=== PATIENT | female | born 1950 | race Caucasian/White ===

== ENCOUNTER → 2016-03-22 | Outpatient (CLI) | payer OTHER ==
[~2016-03-22] MED LIST: CALC500C70 PO; CHOL1CAP26 PO; CPROT OTR; LISI-725 PO; LISI10TA PO; LORA-741 PO; ZNTT/150 PO
--- NOTE | 2016-03-23 14:08 | MAMMOGRAPHY REPORT ---
BILATERAL DIGITAL SCREENING MAMMOGRAM TOMOSYNTHESIS WITH CAD: 03/22/2016 CLINICAL HISTORY: Routine screening examination. Personal history of breast cancer. TECHNIQUE: Breast tomosynthesis in addition to standard 2D mammography was performed. Current study was also evaluated with a Computer Aided Detection (CAD) system. COMPARISON: Comparison is made to exams dated: 09/17/2015 mammogram, 03/18/2015 mammogram, 03/10/2015 mammogram, 02/26/2014 mammogram, 02/25/2013 mammogram, and 02/23/2012 mammogram - [facility]. BREAST COMPOSITION: The tissue of both breasts is extremely dense, which lowers the sensitivity of mammography. FINDINGS: There is asymmetry of the size of the breasts, right greater than left, that is stable on all available prior mammograms dating back to at least 2007, most likely related to previous surgery . There is a stable asymmetry in the far superior right breast on the MLO view. Benign rim calcifi cations, round and punctate microcalcifications are diffusely scattered in the breasts. No suspicio us mass, architectural distortion or cluster of suspicious microcalcifications is seen. IMPRESSION: ACR BI-RADS CATEGORY 1: NEGATIVE There is no mammographic evidence of malignancy. A 1 year screening mammogram is recommended. The p atient will receive written notification of the results. Approximately 10% of breast cancers are not detected with mammography. A negative mammographic repor t should not delay biopsy if a clinically suggestive mass is present. Olinda De Anda M.D. ay/:03/22/2016 16:49:14 [place]: Aissatou VAUGHAN(Javy)(Guerda), [facility] letter sent: Normal 1/2 BI-RADS Code: ACR BI-RADS Category 1: Negative
== END | disposition home or self-care (01) ==
LOC: C.MAMM 14:28
PROVIDERS: ATTEND Nurse Practitioner Family
DX: Z12.31 Encounter for screening mammogram for malignant neoplasm of breast (principal); Z85.3 Personal history of malignant neoplasm of breast; Z08 Encounter for follow-up examination after completed treatment for malignant neoplasm

== ENCOUNTER 2016-04-10 08:25 | Emergency (ER) | payer OTHER ==
[~2016-04-10] VITALS: Ht 160 cm; Wt 51.2 kg
[~2016-04-10 08:25] MED LIST changes: -CPROT OTR; -LISI-725 PO; -LORA-741 PO
[2016-04-10 08:34] VITALS: TEMP 36.6; Ht 160 cm; Wt 51.2 kg
[2016-04-10] MEDS ORDERED: CIPRO 0.2%/HYDROCORTISONE 1% OTIC SUSP 10 ML BTL OT STA (08:51)
[2016-04-10] MEDS ORDERED: LISI-725 PO (09:04)
--- NOTE | 2016-04-10 09:25 | EMERGENCY ROOM VISIT NOTE ---
ED Visit Note First contact with patient: 08:38 CHIEF COMPLAINT: Right ear pain HISTORY OF PRESENT ILLNESS: This 66-year-old female presents the ER with chief complaint of pain and outer right ear swelling for the past 2 weeks. The patient states that she went to her PCP on for the symptoms. She was placed on Z-Niranjan and given Gino-poly HC ear drops to use in the ear. The patient states that the ear drops have made the ear worse. She states it is more swollen and burning. The patient denies any visible drainage from the ear. REVIEW OF SYSTEMS: 6 system review was performed and was negative unless stated otherwise in history of present illness. PMH: The patient is healthy; hypertension, breast cancer, GERD, ovarian cyst removal SOCIAL HISTORY: Patient denies any tobacco or alcohol use. The patient is employed. PHYSICAL EXAM: Vital Signs: Were reviewed Reviewed Nurse's notes. GEN.: 66-year -old white female appears in no acute distress. MENTAL Status: Alert and oriented 3. EARS: Left tragus and auricle nontender. Canal clear. TMs with good light reflex. Right tragus and auricle tender to palpation. Canal with edema and drainage noted. Unable to visualize the TM due to the drainage. NECK : Supple, no lymphadenopathy noted. EMERGENCY COURSE: The patient was evaluated. The patient was offered pain medication but declined. Cipro otic 2 drops are placed into the right ear. The patient was given the remainder of the bottle for home treatment. The patient was discharged home in stable condition. DIAGNOSIS: Acute right otitis externa DISCHARGE INSTRUCTIONS & TREATMENT: Discontinue your current ear drops there is a possibility that you're having allergic reaction to the ear drops since they have a sulfate in them. Use Cipro otic eardrops 2 drops into the right ear twice daily for 7 days. If symptoms are not improving in 2 days recommend follow-up with Dr. Shultz Problem List Surgical Problems: (1) History of breast biopsy Status: Resolved Current/Historical Medications Scheduled Calcium/Vitamin D (Os-Jurgen 500 Plus D), 1 TAB PO QAM Cholecalciferol (D3 Ultra Strength), 5,000 INTUNIT PO QAM Ranitidine (Zantac), 150 MG PO BID Miscellaneous Medications Lisinopril (Zestril), 20 MG PO Allergies Coded Allergies: Penicillins (Verified Allergy, Unknown, , 04/10/16) Sulfa Antibiotics (Verified Allergy, Unknown, RASH, 04/10/16) Vital Signs Date Time Temp Pulse Resp B/P Pulse Ox O2 Delivery O2 Flow Rate FiO2 04/10/16 08:34 36.6 90 18 162/90 98 Room Air Departure Information Referrals Godfrey Soto III, CRNP (PCP) Patient Instructions My [facility]
[2016-04-10 09:40] VITALS: BP 139/93; PULSE 81; O2SAT 98
[2016-04-11] MEDS ORDERED: CPROT OTR (08:12)
[2016-04-11] MEDS ORDERED: LORA-741 PO (08:12)
== END 2016-04-10 09:41 | disposition home or self-care (01) ==
LOC: C.EDB 08:26
DX: H60.501 Unspecified acute noninfective otitis externa, right ear (principal); I10 Essential (primary) hypertension; Z85.3 Personal history of malignant neoplasm of breast; Z79.899 Other long term (current) drug therapy

== ENCOUNTER → 2016-04-15 | Day surgery (SDC) | payer OTHER ==
[2016-04-11 08:13] VITALS: BMI 18.0
[~2016-04-15] VITALS: Ht 160 cm; Wt 47.7 kg
[~2016-04-15] MED LIST changes: +CPROT OTR; +LIDOCAINE HCL 2% 2 ML VIAL (20MG/ML) ONE; +LISI-725 PO; -LISI10TA PO; +LORA-741 PO; +PROPOFOL IV EMULSION 10 MG/ML 20 ML VIAL IV ONE; +SODIUM CHLORIDE 0.9% 500ML 500 ML IV ONE
[2016-04-15 09:36] VITALS: Ht 160 cm; Wt 47.7 kg
[2016-04-15 09:50] VITALS: TEMP 36.7
--- NOTE | 2016-04-15 11:18 | Endo History and Physical ---
History & Physical Date of Service: Apr 15, 2016. Chief Complaint: SCREENING 10 YEAR FOLLOW UP Referring Physician: MITCH ARAGON History of Present Illness 66 yo CF who presents for screening colonoscopy. Past Medical History Reflux, Cancer, Hypertension Past Surgical History Hx Cardiac Surgery: No Hx Internal Defibrillator: No Hx Pacemaker: No Hx Abdominal Surgery: Yes (OVARIAN CYST REMOVED) Hx of Implantable Prosthesis: No Hx Post-Op Nausea and Vomiting: No Hx Cancer Surgery: Yes (LEFT BREAST LUMPECTOMY) Hx Thoracic Surgery: No Hx Orthopedic: No Hx Urinary Tract Surgery: No Family History None Social History Smoking Status: Never Smoker Hx Substance Use: No Hx Alcohol Use: No Allergies Coded Allergies: Penicillins (Verified Allergy, Unknown, infant, 04/15/16) Sulfa Antibiotics (Verified Allergy, Unknown, RASH, 04/15/16) Current Medications Reported Home Medications Medications Dose Route/Sig Max Daily Dose Days Date Category Ativan (Lorazepam) 0.5 Mg Tab 0.5 Mg PO BID PRN 04/11/16 Reported Cipro Hc Otic (Ciprofloxacin-Hydrocortisone) 1 Delia Delia 3 Drops OTR BID 04/11/16 Reported Zestril (Lisinopril) 20 Mg Tab 20 Mg PO QAM 04/10/16 Reported Os-Jurgen 500 Plus D (Calcium/Vitamin D) Tab 1 Tab PO QAM 08/27/15 Reported Zantac (Ranitidine HCl) 150 Mg Tab 150 Mg PO BID 08/27/15 Reported D3 Ultra Strength (Cholecalciferol) 5,000 Unit Cap 5,000 Intunit PO QAM 08/27/15 Reported Vital Signs Weight (Kilograms): 47.73 Height (Feet): 5 Height (Inches): 3 Date Time Temp Pulse Resp B/P Pulse Ox O2 Delivery O2 Flow Rate FiO2 04/15/16 09:50 36.7 75 18 168/97 100 Room Air Physical Exam General Appearance: WD/WN, no apparent distress Respiratory/Chest: Auscultation: breath sounds normal Cardiovascular: Heart Auscultation: RRR Abdomen: Bowel Sounds: normal Inspection & Palpation: soft, non-distended, no tenderness, guarding & rebound Assessment and Plan Assessment: 66 yo CF who presents for screening colonoscopy. Plan: Proceed with colonoscopy.
--- NOTE | 2016-04-15 11:46 | GI REPORT ---
Procedure Date: 04/15/2016 11:12 AM Procedure: Colonoscopy Indications: Screening for colorectal malignant neoplasm Medicines: Monitored Anesthesia Care Complications: No immediate complications. Estimated Blood Loss: Estimated blood loss: none. Procedure: Pre-Anesthesia Assessment: - Prior to the procedure, a History and Physical was performed, and patient medications and allergies were reviewed. The patient's tolerance of previous anesthesia was also reviewed. The risks and benefits of the procedure and the sedation options and risks were discussed with the patient. All questions were answered, and informed consent was obtained. Prior Anticoagulants: The patient has taken no previous anticoagulant or antiplatelet agents. ASA Grade Assessment: II - A patient with mild systemic disease. After reviewing the risks and benefits, the patient was deemed in satisfactory condition to undergo the procedure. After I obtained informed consent, the scope was passed under direct vision. Throughout the procedure, the patient's blood pressure, pulse, and oxygen saturations were monitored continuously. The Scope was introduced through the anus and advanced to the terminal ileum. The colonoscopy was performed without difficulty. The patient tolerated the procedure well. The quality of the bowel preparation was good. The terminal ileum, ileocecal valve, appendiceal orifice, and rectum were photographed. Findings: A 15 mm polyp was found in the sigmoid colon. The polyp was pedunculated. The polyp was removed with a hot snare. Resection and retrieval were complete. Non-bleeding external internal hemorrhoids were found during retroflexion and during perianal exam. The hemorrhoids were small. Impression: - One 15 mm polyp in the sigmoid colon, removed with a hot snare. Resected and retrieved. - Non-bleeding external internal hemorrhoids. Recommendation: - Resume previous diet. - Continue present medications. - Repeat colonoscopy for surveillance based on pathology results. - Return to primary care physician as previously scheduled. Linus Alan DO 04/15/2016 11:45:34 AM This report has been signed electronically. Note Initiated On: 04/15/2016 11:12 AM I attest to the content of the Intraoperative Record and orders documented therein, exceptions below
--- NOTE | 2016-04-15 11:47 | Discharge Instructions ---
Endoscopy Patient Instructions Date / Procedure(s) Performed Apr 15, 2016. Colonoscopy Allergy Information Coded Allergies: Penicillins (Verified Allergy, Unknown, infant, 04/15/16) Sulfa Antibiotics (Verified Allergy, Unknown, RASH, 04/15/16) Discharge Date / Findings Apr 15, 2016. Colon polyp Internal hemorrhoids Medication Instructions Stopped Medication(s): VITAMINS STOPPED YESTERDAY Ok to resume all medications today as prescribed Reported Home Medications Medications Dose Route/Sig Max Daily Dose Days Date Category Ativan (Lorazepam) 0.5 Mg Tab 0.5 Mg PO BID PRN 04/11/16 Reported Cipro Hc Otic (Ciprofloxacin-Hydrocortisone) 1 Delia Delia 3 Drops OTR BID 04/11/16 Reported Zestril (Lisinopril) 20 Mg Tab 20 Mg PO QAM 04/10/16 Reported Os-Jurgen 500 Plus D (Calcium/Vitamin D) Tab 1 Tab PO QAM 08/27/15 Reported Zantac (Ranitidine HCl) 150 Mg Tab 150 Mg PO BID 08/27/15 Reported D3 Ultra Strength (Cholecalciferol) 5,000 Unit Cap 5,000 Intunit PO QAM 08/27/15 Reported Provider Instructions Activity Restrictions - No exercising or heavy lifting for 24 hours. - Do not drink alcohol the day of the procedure. - Do not drive a car or operate machinery until the day after the procedure. - Do not make any important decisions or sign important papers in 24 hours after the procedure. Following Day: - Return to full activity which may include returning to work/school. Diet Start your diet with liquids and light foods (jello, soup, juice, toast). Then eat your usual diet if not nauseated. Treatment For Common After Affects For mild abdominal pain, bloating, or excessive gas: - Rest - Eat lightly - Lie on right side Follow-Up Information Follow-up with MITCH ARAGON as scheduled Anesthesia Information What You Should Know You have had a procedure that required some medicine to reduce anxiety and discomfort. This treatment is called moderate sedation. After receiving the treatment, you may be sleepy, but you will be able to breathe on your own. The effects of the treatment may last for several hours. Follow these instructions along with Activity/Diet recommendations noted above: * Do NOT do anything where dizziness or clumsiness would be dangerous. * Rest quietly at home today, then you can be up and about tomorrow. * Have a responsible person stay with you the rest of today. * You may have had an I.V. today. If so, you may take the dressing off later today. Recommendations Call your doctor if: * Trouble breathing * Continuous vomiting for more than 24 hours * Temperature above 101 degrees * Severe abdominal pain or bloating * Pain not relieved by pain medicine ordered * There is increased drainage or redness from any incision * A large amount of rectal bleeding greater than 2-3 tablespoons. (If you had a polyp/s removed or have hemorrhoids, a small amount of blood - from the rectum is to be expected.) * You have any unanswered questions or concerns. IN THE EVENT OF A SERIOUS EMERGENCY, GO TO THE NEAREST EMERGENCY ROOM Your discharge instructions were prepared by provider Linus Alan. Patient Instructions Signature Page La Nena Ellis Patient (or Guardian) Signature/Date: I have read and understand the instructions given to me by my caregivers. Caregiver/RN/Doctor Signature/Date: The above-named patient and/or guardian has received patient instructions on this date. + Original Patient Signature Page (only) stays with chart. Please make copy for patient.
--- NOTE | 2016-04-15 12:06 | Anesthesiology Progress Note ---
Anesthesia Post Op Note Date & Time Apr 15, 2016 at 12:07 Vital Signs Pain Intensity: 0 Vital Signs Past 12 Hours Date Time Temp Pulse Resp B/P Pulse Ox O2 Delivery O2 Flow Rate FiO2 04/15/16 12:02 78 18 112/63 95 Room Air 04/15/16 11:56 98/57 04/15/16 11:50 78 18 84/50 95 Room Air 04/15/16 11:44 80 18 84/50 96 Room Air 04/15/16 09:50 36.7 75 18 168/97 100 Room Air Notes Mental Status: alert / awake / arousable, participated in evaluation Pt Amnestic to Procedure: Yes Nausea / Vomiting: adequately controlled Pain: adequately controlled Airway Patency, RR, SpO2: stable & adequate BP & HR: stable & adequate Hydration State: stable & adequate Anesthetic Complications: no major complications apparent
[2016-04-15 12:16] VITALS: BP 132/86; PULSE 64; O2SAT 98
== END | disposition home or self-care (01) ==
LOC: C.GI 09:28
PROVIDERS: ATTEND Internal Medicine
DX: Z12.11 Encounter for screening for malignant neoplasm of colon (principal); D12.5 Benign neoplasm of sigmoid colon; K64.8 Other hemorrhoids; I10 Essential (primary) hypertension

== ENCOUNTER → 2017-03-24 | Outpatient (CLI) | payer OTHER ==
[~2017-03-24] MED LIST changes: -LIDOCAINE HCL 2% 2 ML VIAL (20MG/ML) ONE; -PROPOFOL IV EMULSION 10 MG/ML 20 ML VIAL IV ONE; -SODIUM CHLORIDE 0.9% 500ML 500 ML IV ONE
--- NOTE | 2017-03-27 15:52 | MAMMOGRAPHY REPORT ---
BILATERAL DIGITAL SCREENING MAMMOGRAM TOMOSYNTHESIS WITH CAD: 03/24/2017 CLINICAL HISTORY: Routine screening. Patient has no complaints. TECHNIQUE: Breast tomosynthesis in addition to standard 2D mammography was performed. Current study was also evaluated with a Computer Aided Detection (CAD) system. COMPARISON: Comparison is made to exams dated: 03/22/2016 mammogram, 09/17/2015 mammogram, 03/18/2015 m ammogram, 03/10/2015 mammogram, 02/26/2014 mammogram, and 02/25/2013 mammogram - [facility]. BREAST COMPOSITION: The tissue of both breasts is extremely dense, which lowers the sensitivity of m ammography. FINDINGS: No suspicious masses, calcifications, or areas of architectural distortion are noted in ei ther breast. There has been no significant interval change compared to prior exams. Scattered bilater al benign-appearing calcifications are not significantly changed. Right superior breast asymmetry is stable compared to multiple prior exams. IMPRESSION: ACR BI-RADS CATEGORY 2: BENIGN There is no mammographic evidence of malignancy. A 1 year screening mammogram is recommended. The pa tient will receive written notification of the results. Approximately 10% of breast cancers are not detected with mammography. A negative mammographic report should not delay biopsy if a clinically suggestive mass is present. Kristi Malloy M.D. /:03/24/2017 15:28:09 [place]: Cesia VAUGHAN(R)(M), [facility] letter sent: Normal 1/2 BI-RADS Code: ACR BI-RADS Category 2: Benign
== END | disposition home or self-care (01) ==
LOC: C.MAMM 14:48
PROVIDERS: ATTEND Nurse Practitioner Family
DX: Z12.31 Encounter for screening mammogram for malignant neoplasm of breast (principal); Z85.3 Personal history of malignant neoplasm of breast

== ENCOUNTER → 2017-04-15 | Outpatient (CLI) | payer OTHER ==
[~2017-04-15] MED LIST changes: +RANI150T85 PO; -ZNTT/150 PO
[2017-04-15 09:01] LABS: BASO % 0.3 %; BASO ABS # 0.01 K/uL (0-0.2); EOS % 1.3 %; EOS ABS # 0.05 K/uL (0-0.5); HEMATOCRIT 42.2 % (37-47); HEMOGLOBIN 14.3 g/dL (12.0-16.0); LYMPH % 44.3 %; LYMPH ABS # 1.74 K/uL (1.2-3.4); MEAN CELL VOLUME 90.2 fL (80-100); MEAN CORPUSCULAR HEMOGLOBIN 30.6 pg (25-34); MEAN CORPUSCULAR HGB CONC 33.9 g/dl (32-36); MEAN PLATELET VOLUME 10.9 fL (7.4-10.4); MONO % 11.7 %; MONO ABS # 0.46 K/uL (0.11-0.59); NEUT % 42.4 %; NEUT ABS # 1.67 K/uL (1.4-6.5); PLATELET COUNT 208 K/uL (130-400); RED CELL DISTRIBUTION WIDTH CV 13.8 % (11.5-14.5); RED CELL DISTRIBUTION WIDTH SD 45.1 fL (36.4-46.3); WHITE BLOOD COUNT 3.93 K/uL (4.8-10.8)
[2017-04-15 09:39] LABS: ALBUMIN 3.9 gm/dl (3.4-5.0); ALT/SGPT 23 U/L (12-78); BLOOD UREA NITROGEN 17 mg/dl (7-18); CARBON DIOXIDE 30 mmol/L (21-32); CHOLESTEROL 214 mg/dl (0-200); CREATININE 0.91 mg/dl (0.60-1.20); GLUCOSE 91 mg/dl (70-99); SODIUM 137 mmol/L (136-145)
[2017-04-15 09:47] LABS: ALKALINE PHOSPHATASE 56 U/L (45-117); AST/SGOT 18 U/L (15-37); LDL CHOLESTEROL CALCULATED 128 mg/dl; TOTAL PROTEIN 7.8 gm/dl (6.4-8.2)
== END | disposition home or self-care (01) ==
LOC: C.LAB 08:34
PROVIDERS: ATTEND Nurse Practitioner Family
DX: Z00.00 Encounter for general adult medical examination without abnormal findings (principal); I10 Essential (primary) hypertension; Z13.220 Encounter for screening for lipoid disorders; K21.9 Gastro-esophageal reflux disease without esophagitis; Z13.820 Encounter for screening for osteoporosis; Z13.1 Encounter for screening for diabetes mellitus; E55.9 Vitamin D deficiency, unspecified